=== PATIENT | male | born 1985 | race African-American/Black ===

== ENCOUNTER 2017-03-27 23:29 | Emergency (ER) | payer SELFPAY ==
[~2017-03-27 23:29] MED LIST: CIPRO PO; MOTION RELIEF25 MG PO; NO MEDICATIONS; ZOFRAN ODT4 MG/UDTAB PO
== END 2017-03-28 00:58 | disposition home or self-care (01) ==
LOC: SED 23:29
DX: M25.562 Pain in left knee (principal); M25.561 Pain in right knee; M25.572 Pain in left ankle and joints of left foot; M25.571 Pain in right ankle and joints of right foot
CPT/HCPCS: 99282